=== PATIENT | male | born 1990 | race Caucasian/White ===

== ENCOUNTER 2017-06-13 20:41 | Emergency (ER) | payer OTHER ==
[2017-06-13 22:26] VITALS: BP 120/72
== END 2017-06-13 22:26 | disposition other institution (70) ==
LOC: ED 20:41
DX: Z02.89 Encounter for other administrative examinations (principal); F12.929 Cannabis use, unspecified with intoxication, unspecified; V43.52XA Car driver injured in collision with other type car in traffic accident, initial encounter; W22.10XA Striking against or struck by unspecified automobile airbag, initial encounter; Y99.8 Other external cause status; Y93.89 Activity, other specified; Y92.89 Other specified places as the place of occurrence of the external cause